=== PATIENT | female | born 1985 | race African-American/Black ===

== ENCOUNTER 2017-11-25 14:02 | Emergency (ER) | payer OTHER, SELFPAY ==
[2017-11-25] MEDS ORDERED: Acetaminophen/Codeine 30-300mg Tablet ONE (14:37)
[2017-11-25] MEDS ORDERED: Ibuprofen 200 MG TAB ONE (14:38)
--- NOTE | 2017-11-25 14:53 | RAD ---
3 VIEWS LEFT RING FINGER: Date: 11/25/17 INDICATION: Laceration of the left ring finger. FINDINGS: No acute fracture or subluxation is evident. No radiopaque foreign body is demonstrated. Joint spaces are preserved. Bone mineralization is normal. IMPRESSION: No acute osseous abnormality. POS: [facility]
[2017-11-25] MEDS ORDERED: Adacel (T-DAP) 0.5 ML VIAL ONE (15:01)
== END 2017-11-25 15:14 | disposition home or self-care (01) ==
LOC: NAV ERS 14:02
DX: S61.215A Laceration without foreign body of left ring finger without damage to nail, initial encounter (principal); I10 Essential (primary) hypertension; Z87.891 Personal history of nicotine dependence; Z79.899 Other long term (current) drug therapy; W26.8XXA Contact with other sharp object(s), not elsewhere classified, initial encounter
CPT/HCPCS: 90471; 90715

== ENCOUNTER 2018-12-27 08:58 | Outpatient (CLI) | payer OTHER ==
--- NOTE | 2018-12-27 10:56 | ULT ---
ABDOMINAL ULTRASOUND COMPLETE: History: Peroneal pain, more right sided, for several months. FINDINGS: Liver echogenicity appears to be within normal limits. No gallstones, wall thickening, edema, or shan cholecystic fluid. Common bile duct 0.4 cm. No focal liver masses. No intrahepatic ductal dilatation. Visualized pancreas, IVC, aorta and spleen are unremarkable. No renal hydronephrosis. Both kidneys a re borderline small. IMPRESSION: No evidence of gallstones. Borderline small kidneys bilaterally. No abnormal fluid collection. No rachna jil dilatation. POS: [facility]
--- NOTE | 2018-12-27 11:07 | ULT ---
COMPLETE PELVIC ULTRASOUND: HISTORY: Pain. COMPARISON: None. FINDINGS: Ultrasound of the pelvis was performed with a transabdominal approach. The uterus measures 11 x 4 x 5 cm. The endometrial thickness is normal, measuring less than 1 cm. The right ovary measures 4.3 x 2.1 x 3.4 cm with a 2.4 cm cyst. The left ovary measures 3.2 x 1.6 x 1.4 cm. No significant free fluid. There is adequate vascular flow to both ovaries. IMPRESSION: Findings suggestive of a complex right ovarian cyst, which may reflect a hemorrhagic cyst. Followup in six weeks is recommended. POS: [facility]
== END 2018-12-27 08:59 | disposition home or self-care (01) ==
LOC: NAV ULT 08:58
PROVIDERS: ATTEND Nurse Practitioner Family
DX: R10.2 Pelvic and perineal pain (principal)
CPT/HCPCS: 76700; 76856

== ENCOUNTER 2019-06-19 15:42 | Emergency (ER) | payer OTHER | END 2019-06-19 16:50 | disposition home or self-care (01) | LOC: NAV ERS 15:42 | DX: F41.9 Anxiety disorder, unspecified (principal); Z77.22 Contact with and (suspected) exposure to environmental tobacco smoke (acute) (chronic); Z79.899 Other long term (current) drug therapy ==

== ENCOUNTER 2019-08-16 12:10 | Emergency (ER) | payer OTHER ==
[2019-08-16 12:46] LABS: #Eosinphils 0.1 thou/uL (0.0-0.7); #Lymphocytes 1.6 thou/uL (1.20-3.40); #Monocytes 0.4 thou/uL (0.11-0.59); #Neutrophils 2.8 thou/uL (1.40-6.50); %Basophils 0.8 % (0.0-1.0); %Eosinophils 2.5 % (0.0-10.0); %Lymphocytes 32.6 % (21.0-51.0); %Monocytes 7.4 % (0.0-10.0); %Neutrophils 56.8 % (42.0-75.0); Hemoglobin 11.8 g/dL (12.0-16.0); Mean Corpuscular HGB CONC 32.3 g/dL (32.0-36.0); Mean Corpuscular Hemoglobin 30.5 pg (27.0-31.0); Mean Corpuscular Volume 94.5 fL (78.0-98.0); Platelet Count 266 thou/uL (130-400); RBC Distribution Width 13.1 % (11.5-14.5); Red Blood Cell (RBC) Count 3.88 mill/uL (4.20-5.40); White Blood Cell (WBC) Count 4.9 thou/uL (4.8-10.8)
[2019-08-16 12:53] LABS: BHCG - Serum Negative (NEGATIVE); Pregs Control Bar Appear? YES (CONTROL BAR)
[2019-08-16 13:00] LABS: ALT (SGPT) 16 U/L (8-55); AST (SGOT) 15 U/L (5-34); Albumin 3.7 g/dL (3.5-5.0); Alkaline Phosphatase 57 U/L (40-110); Anion Gap 12 mmol/L (10-20); BUN (Urea Nitrogen) 12 mg/dL (7.0-18.7); Bilirubin, Total 0.5 mg/dL (0.2-1.2); Calc. Creatinine Clearance 0 mL/min (70-130); Calcium 8.5 mg/dL (7.8-10.44); Carbon Dioxide 26 mmol/L (22-29); Chloride 106 mmol/L (98-107); Estimated GFR-MDRD 87; Globulin 2.6 g/dL (2.4-3.5); Glucose 91 mg/dL (70-105); Potassium 3.6 mmol/L (3.5-5.1); Protein, Total 6.3 g/dL (6.0-8.3); Sodium 140 mmol/L (136-145)
[2019-08-16 13:33] LABS: Bilirubin Negative (Negative); Blood, Urine Large (Negative); Clarity Cloudy (Clear); Glucose, Urine (Dipstick) Negative (Negative); Leukocyte Negative (Negative); Nitrite Negative (Negative); Protein, Urine (Dipstick) 30 mg/dL (Neg-Trace)
--- NOTE | 2019-08-16 13:35 | ULT ---
TRANSABDOMINAL ULTRASOUND OF THE PELVIS: HISTORY: Bleeding longer than normal. Left lower quadrant pain. COMPARISON: 12/27/2018 TECHNIQUE: Transabdominal imaging of the pelvis was formed. The patient refused endovaginal imaging. The ovaries are interrogated with morales-scale, color-flow and Doppler imaging with spectral wave-form analysis. FINDINGS: The uterus is identified, measuring 9.8 x 4.2 x 5.2 cm. In the posterior uterine myometrium, there is a hypoechoic focus measuring 0.9 x 1.1 x 1.1 cm. Uterine leiomyoma is favored. Limited evaluation of the endometrium. The left ovary has a normal echotexture, measuring 1.9 x 4.3 x 4.2 cm. Multiple follicles in the right ovary are noted. The right ovary measures 3.6 x 2.4 x 3.8 cm. No free fluid. Ovarian Doppler: Vascular flow to the right and left ovary. IMPRESSION: Small uterine fibroid. Limited evaluation of the endometrium. Consider pelvic MRI. Transcribed Date/Time: 08/16/2019 1:41 PM
[2019-08-16 13:45] LABS: RBC/HPF 21-50 HPF (0-3)
[2019-08-16 13:46] LABS: Bacteria/HPF None Seen HPF (None Seen)
== END 2019-08-16 13:50 | disposition home or self-care (01) ==
LOC: NAV ERS 12:10
DX: N85.8 Other specified noninflammatory disorders of uterus (principal); N83.8 Other noninflammatory disorders of ovary, fallopian tube and broad ligament; I10 Essential (primary) hypertension; F41.9 Anxiety disorder, unspecified; Z87.891 Personal history of nicotine dependence; Z79.899 Other long term (current) drug therapy
CPT/HCPCS: 76856; 80053; 81003; 81015; 84703; 85025

== ENCOUNTER 2019-08-31 01:29 | Emergency (ER) | payer OTHER ==
[2019-08-31] MEDS ORDERED: Ketorolac Tromethamine 60 MG/2 ML VIAL ONE (01:58)
== END 2019-08-31 02:15 | disposition home or self-care (01) ==
LOC: NAV ERS 01:29
DX: S46.912A Strain of unspecified muscle, fascia and tendon at shoulder and upper arm level, left arm, initial encounter (principal); I10 Essential (primary) hypertension; F41.9 Anxiety disorder, unspecified; Z87.891 Personal history of nicotine dependence; Z79.899 Other long term (current) drug therapy; X50.9XXA Other and unspecified overexertion or strenuous movements or postures, initial encounter
CPT/HCPCS: 96372; 99283; J1885

== ENCOUNTER 2019-09-01 06:42 | Emergency (ER) | payer OTHER ==
--- NOTE | 2019-09-01 07:39 | RAD ---
LEFT SHOULDER 3 VIEWS: Date: 09/01/19 HISTORY: Left shoulder pain. FINDINGS/IMPRESSION: No fracture, dislocation, or other acute osseous process. POS: [facility]
== END 2019-09-01 08:16 | disposition home or self-care (01) ==
LOC: NAV ERS 06:42
DX: S46.912A Strain of unspecified muscle, fascia and tendon at shoulder and upper arm level, left arm, initial encounter (principal); I10 Essential (primary) hypertension; F41.9 Anxiety disorder, unspecified; F17.210 Nicotine dependence, cigarettes, uncomplicated; Z79.899 Other long term (current) drug therapy; X50.9XXA Other and unspecified overexertion or strenuous movements or postures, initial encounter

== ENCOUNTER 2019-11-16 08:01 | Emergency (ER) | payer OTHER | END 2019-11-16 08:34 | disposition home or self-care (01) | LOC: NAV ERS 08:01 | DX: J06.9 Acute upper respiratory infection, unspecified (principal); G43.909 Migraine, unspecified, not intractable, without status migrainosus; I10 Essential (primary) hypertension; F41.9 Anxiety disorder, unspecified; F32.9 Major depressive disorder, single episode, unspecified; F17.210 Nicotine dependence, cigarettes, uncomplicated; Z79.899 Other long term (current) drug therapy | CPT/HCPCS: 99281 ==

== ENCOUNTER 2019-12-17 13:20 | Emergency (ER) | payer OTHER ==
[2019-12-17] MEDS ORDERED: Lidocaine 1% w/Epinephrine 1:100K 30 ML VIAL ONE (13:32)
[2019-12-17] MEDS ORDERED: Adacel (T-DAP) 0.5 ML SYRINGE ONE (14:03)
[2019-12-17] MEDS ORDERED: Bacitracin 1 PK ONE (14:14)
== END 2019-12-17 14:25 | disposition home or self-care (01) ==
LOC: NAV ERS 13:20
DX: S61.512A Laceration without foreign body of left wrist, initial encounter (principal); D50.9 Iron deficiency anemia, unspecified; G43.909 Migraine, unspecified, not intractable, without status migrainosus; I10 Essential (primary) hypertension; F41.9 Anxiety disorder, unspecified; F32.9 Major depressive disorder, single episode, unspecified; F17.210 Nicotine dependence, cigarettes, uncomplicated; Z23 Encounter for immunization; Z79.899 Other long term (current) drug therapy; W26.8XXA Contact with other sharp object(s), not elsewhere classified, initial encounter
CPT/HCPCS: 12002; 90471; 90715; J2001

== ENCOUNTER 2019-12-19 11:08 | Emergency (ER) | payer OTHER | END 2019-12-19 11:40 | disposition home or self-care (01) | LOC: NAV ERS 11:08 | DX: S61.215D Laceration without foreign body of left ring finger without damage to nail, subsequent encounter (principal); D50.9 Iron deficiency anemia, unspecified; G43.909 Migraine, unspecified, not intractable, without status migrainosus; I10 Essential (primary) hypertension; F41.9 Anxiety disorder, unspecified; F17.210 Nicotine dependence, cigarettes, uncomplicated; F32.9 Major depressive disorder, single episode, unspecified; Z79.899 Other long term (current) drug therapy; W45.8XXD Other foreign body or object entering through skin, subsequent encounter | CPT/HCPCS: 99282 ==

== ENCOUNTER 2021-04-05 12:58 | Emergency (ER) | payer OTHER ==
[2021-04-05] MEDS ORDERED: Sodium Chloride 0.9% 1,000 ML ONE (13:19)
[2021-04-05 13:31] LABS: #Eosinphils 0.1 thou/uL (0.0-0.7); #Lymphocytes 1.7 thou/uL (1.20-3.40); #Monocytes 0.5 thou/uL (0.11-0.59); #Neutrophils 3.5 thou/uL (1.40-6.50); %Basophils 0.8 % (0.0-1.0); %Eosinophils 2.4 % (0.0-10.0); %Lymphocytes 28.8 % (21.0-51.0); %Monocytes 7.9 % (0.0-10.0); %Neutrophils 60.1 % (42.0-75.0); Hemoglobin 12.6 g/dL (12.0-16.0); Mean Corpuscular HGB CONC 29.7 g/dL (32.0-36.0); Mean Corpuscular Hemoglobin 28.3 pg (27.0-31.0); Mean Corpuscular Volume 95.5 fL (78.0-98.0); Mean Platelet Volume 8.3 fL (7.4-10.4); Platelet Count 303 thou/uL (130-400); RBC Distribution Width 12.5 % (11.5-14.5); Red Blood Cell (RBC) Count 4.46 mill/uL (4.20-5.40); White Blood Cell (WBC) Count 5.8 thou/uL (4.8-10.8)
[2021-04-05 13:39] LABS: ALT (SGPT) 15 U/L (8-55); AST (SGOT) 15 U/L (5-34); Alkaline Phosphatase 82 U/L (40-110); Anion Gap 15 mmol/L (10-20); BUN (Urea Nitrogen) 12 mg/dL (7.0-18.7); Bilirubin, Total 0.4 mg/dL (0.2-1.2); Calc. Creatinine Clearance 0 mL/min (70-130); Calcium 8.4 mg/dL (7.8-10.44); Carbon Dioxide 24 mmol/L (22-29); Chloride 104 mmol/L (98-107); Globulin 3.1 g/dL (2.4-3.5); Glucose 93 mg/dL (70-105); Potassium 3.3 mmol/L (3.5-5.1); Protein, Total 7.1 g/dL (6.0-8.3); Sodium 140 mmol/L (136-145)
[2021-04-05 14:12] LABS: Bilirubin Negative (Negative); Blood, Urine Trace (Negative); Clarity Clear (Clear); Glucose, Urine (Dipstick) Negative (Negative); Ketone, Urine Negative (Negative); Leukocyte Small (Negative); Nitrite Negative (Negative); Protein, Urine (Dipstick) Negative (Neg-Trace); Urobilinogen 0.2 mg/dL (Less than 2); pH, Urine 7.5 (5.0-9.0)
[2021-04-05] MEDS ORDERED: Potassium Chloride 20 MEQ TAB ONE (14:15)
[2021-04-05 14:22] LABS: Pregnancy Test - Urine (BHCG) Negative (Negative); Pregu Control Background? CLEAR/WHITE (CLR/WHITE); Pregu Control Bar Appear? YES (CONTROL BAR)
[2021-04-05 14:32] LABS: Bacteria/HPF None Seen HPF (None Seen); RBC/HPF None Seen HPF (0-3); Squamous Epithelial 0-3 HPF (0-3); WBC/HPF None Seen HPF (0-3)
== END 2021-04-05 14:54 | disposition home or self-care (01) ==
LOC: NAV ERS 12:58
DX: T67.5XXA Heat exhaustion, unspecified, initial encounter (principal); E86.0 Dehydration; D50.9 Iron deficiency anemia, unspecified; I10 Essential (primary) hypertension; F17.210 Nicotine dependence, cigarettes, uncomplicated
CPT/HCPCS: 36415; 71045; 80053; 81003; 81015; 81025; 84484; 85025; 93005; J7050

== ENCOUNTER 2021-05-06 00:45 | Emergency (ER) | payer OTHER ==
[2021-05-06] MEDS ORDERED: Amlodipine 5 MG TAB ONE (01:02)
[2021-05-06] MEDS ORDERED: Hydrochlorothiazide 25 MG TAB ONE (01:02)
== END 2021-05-06 01:10 ==
LOC: NAV ERS 00:45
DX: I10 Essential (primary) hypertension (principal); G43.909 Migraine, unspecified, not intractable, without status migrainosus; D50.9 Iron deficiency anemia, unspecified; F17.210 Nicotine dependence, cigarettes, uncomplicated
CPT/HCPCS: 99283

== ENCOUNTER 2021-08-28 23:10 | Emergency (ER) | payer OTHER ==
[2021-08-28] MEDS ORDERED: Lorazepam 2 MG/ML VIAL ONE (23:29)
[2021-08-28] MEDS ORDERED: Sodium Chloride 0.9% 1,000 ML ONE (23:29)
[2021-08-28 23:36] LABS: #Basophils 0.1 thou/uL (0.0-0.2); #Eosinphils 0.1 thou/uL (0.0-0.7); #Monocytes 0.7 thou/uL (0.11-0.59); #Neutrophils 6.3 thou/uL (1.40-6.50); %Basophils 1.3 % (0.0-1.0); %Eosinophils 1.3 % (0.0-10.0); %Lymphocytes 21.2 % (21.0-51.0); %Monocytes 7.6 % (0.0-10.0); %Neutrophils 68.5 % (42.0-75.0); Hemoglobin 11.2 g/dL (12.0-16.0); Mean Corpuscular HGB CONC 31.9 g/dL (32.0-36.0); Mean Corpuscular Hemoglobin 29.5 pg (27.0-31.0); Mean Corpuscular Volume 92.6 fL (78.0-98.0); Mean Platelet Volume 8.8 fL (7.4-10.4); Platelet Count 259 thou/uL (130-400); RBC Distribution Width 12.1 % (11.5-14.5); Red Blood Cell (RBC) Count 3.78 mill/uL (4.20-5.40); White Blood Cell (WBC) Count 9.2 thou/uL (4.8-10.8)
[2021-08-28 23:37] LABS: BHCG - Serum Negative (NEGATIVE); Pregs Control Bar Appear? YES (CONTROL BAR)
[2021-08-28 23:48] LABS: Acetaminophen Less than 6.0 mcg/mL (10.0-30.0); Alcohol Less than 10 mg/dL (Less than 10); Salicylate Less than 8.0 mg/dL (15.0-30.0)
[2021-08-28 23:50] LABS: ALT (SGPT) 76 U/L (8-55); AST (SGOT) 104 U/L (5-34); Albumin 3.7 g/dL (3.5-5.0); Alkaline Phosphatase 58 U/L (40-110); Anion Gap 13 mmol/L (10-20); BUN (Urea Nitrogen) 17 mg/dL (7.0-18.7); Calc. Creatinine Clearance 0 mL/min (70-130); Calcium 8.7 mg/dL (7.8-10.44); Carbon Dioxide 26 mmol/L (22-29); Chloride 106 mmol/L (98-107); Globulin 2.9 g/dL (2.4-3.5); Glucose 95 mg/dL (70-105); Protein, Total 6.6 g/dL (6.0-8.3); Sodium 142 mmol/L (136-145)
[2021-08-29 00:48] LABS: Bilirubin Small (Negative); Blood, Urine Small (Negative); Clarity Clear (Clear); Glucose, Urine (Dipstick) Negative (Negative); Ketone, Urine 40 mg/dL (Negative); Leukocyte Small (Negative); Nitrite Negative (Negative); Protein, Urine (Dipstick) 30 mg/dL (Neg-Trace); Specific Gravity, Urine 1.025 (1.005-1.030); Urobilinogen > or = 8.0 mg/dL (Less than 2)
[2021-08-29 00:53] LABS: Bacteria/HPF None Seen HPF (None Seen)
[2021-08-29 00:58] LABS: Cocaine Metabolite Screen Detected (NotDetected); Methamphetamine Detected (NotDetected); THC/Cannabinoid Screen Detected (NotDetected)
[2021-08-29 00:59] LABS: Amphetamine Detected (NotDetected); Barbiturates Screen Not Detected (NotDetected); Benzodiazepine Screen Not Detected (NotDetected); Medtox Control Line Valid? VALID (VALID); Methadone Not Detected (NotDetected); Opiate Screen Not Detected (NotDetected); Oxycodone Screen Not Detected (NotDetected); Phencyclidine (PCP) Not Detected (NotDetected); Tricyclic Screen Not Detected (NotDetected)
[2021-08-29] MEDS ORDERED: Lorazepam 2 MG/ML VIAL ONE (01:00)
[2021-08-29 01:04] LABS: CKMB 29.9 ng/mL (0-6.6)
[2021-08-29] MEDS ORDERED: Aspirin 300 MG Suppository ONE (01:32)
[2021-08-29] MEDS ORDERED: Sodium Chloride 0.9% 1,000 ML ONE (01:59)
[2021-08-29 02:32] LABS: SARS-CoV-2 NAA Rapid Test Not Detected (NotDetected)
[2021-08-29 02:44] LABS: Troponin I 0.035 ng/mL (< 0.028)
== END 2021-08-29 02:23 | disposition short-term general hospital (02) ==
LOC: NAV ERS 23:10
DX: R41.82 Altered mental status, unspecified (principal); E87.6 Hypokalemia; F12.10 Cannabis abuse, uncomplicated; F14.10 Cocaine abuse, uncomplicated; F15.10 Other stimulant abuse, uncomplicated; M62.82 Rhabdomyolysis; Z20.822 Contact with and (suspected) exposure to COVID-19; G43.909 Migraine, unspecified, not intractable, without status migrainosus; D50.9 Iron deficiency anemia, unspecified; I10 Essential (primary) hypertension; F17.210 Nicotine dependence, cigarettes, uncomplicated
CPT/HCPCS: 51702; 70450; 80053; 80306; 80307; 81003; 81015; 82550; 82553; 84443; 84484; 84703; 85025; 93005; 96374; 96376; J2060; J7050; U0002

== ENCOUNTER 2023-05-03 00:26 | Emergency (ER) | payer OTHER ==
[2023-05-03] MEDS ORDERED: hydrALAZINE 20 MG/ML VIAL ONE ×2 (00:45→01:14)
== END 2023-05-03 01:46 ==
LOC: NAV ERS 00:26
DX: I10 Essential (primary) hypertension (principal); D50.9 Iron deficiency anemia, unspecified; G47.00 Insomnia, unspecified; F17.210 Nicotine dependence, cigarettes, uncomplicated
CPT/HCPCS: 96372; 99283; J0360

== ENCOUNTER 2024-06-27 17:19 | Emergency (ER) | payer OTHER, SELFPAY | END 2024-06-27 19:00 | disposition home or self-care (01) | LOC: NAV ERS 17:19 | DX: M22.01 Recurrent dislocation of patella, right knee (principal); I10 Essential (primary) hypertension; F17.210 Nicotine dependence, cigarettes, uncomplicated ==

== ENCOUNTER 2024-08-14 14:03 | Emergency (ER) | payer BC, SELFPAY ==
[2024-08-14] MEDS ORDERED: Sodium Chloride 0.9% 1,000 ML ONE (14:42)
[2024-08-14 14:54] LABS: Amphetamine Not Detected (NotDetected); Barbiturates Screen Not Detected (NotDetected); Benzodiazepine Screen Not Detected (NotDetected); Cocaine Metabolite Screen Not Detected (NotDetected); Methadone Not Detected (NotDetected); Methamphetamine Not Detected (NotDetected); Opiate Screen Not Detected (NotDetected); Oxycodone Screen Not Detected (NotDetected); Phencyclidine (PCP) Not Detected (NotDetected); THC/Cannabinoid Screen Not Detected (NotDetected); Tricyclic Screen Not Detected (NotDetected)
[2024-08-14 15:17] LABS: #Basophils 0.1 thou/uL (0.0-0.2); #Eosinophils 0.1 thou/uL (0.0-0.7); #Lymphocytes 2.4 thou/uL (1.20-3.40); #Monocytes 0.7 thou/uL (0.11-0.59); #Neutrophils 4.8 thou/uL (1.40-6.50); %Basophils 0.7 % (0.0-1.0); %Eosinophils 1.4 % (0.0-10.0); %Lymphocytes 29.6 % (21.0-51.0); %Monocytes 8.6 % (0.0-10.0); %Neutrophils 59.8 % (42.0-75.0); Hematocrit 36.7 % (36.0-47.0); Hemoglobin 11.3 g/dL (12.0-16.0); Mean Corpuscular HGB CONC 30.7 g/dL (32.0-36.0); Mean Corpuscular Hemoglobin 26.2 pg (27.0-31.0); Mean Corpuscular Volume 85.3 fl (78.0-98.0); Mean Platelet Volume 9.5 fL (7.4-10.4); Platelet Count 282 10x3/uL (130-400)
[2024-08-14 15:18] LABS: Bacteria/HPF Rare-Few HPF (None Seen); Bilirubin Negative (Negative); Blood, Urine Negative (Negative); CAUTI Indications for Culture Alt mental st,lethar; Clarity Clear (Clear); Glucose, Urine (Dipstick) Negative (Negative); Ketone, Urine Negative (Negative); Leukocyte Trace (Negative); Nitrite Negative (Negative); Protein, Urine (Dipstick) Negative (Neg-Trace); RBC/HPF 0-3 HPF (0-3); Specific Gravity, Urine 1.015 (1.005-1.030); Squamous Epithelial 0-3 HPF (0-3); Trichomonas/HPF 1+ HPF (None Seen); Urobilinogen 0.2 mg/dL (Less than 2); WBC/HPF 0-3 HPF (0-3)
[2024-08-14 15:19] LABS: Urine Culture Reflex No No
[2024-08-14 15:29] LABS: ALT (SGPT) 14 U/L (8-55); AST (SGOT) 16 U/L (5-34); Albumin 3.6 g/dL (3.5-5.0); Alkaline Phosphatase 69 U/L (40-110); Anion Gap 15 mmol/L (10-20); BUN (Urea Nitrogen) 15 mg/dL (7.0-18.7); Bilirubin, Total 0.4 mg/dL (0.2-1.2); Calc. Creatinine Clearance 0 mL/min (70-130); Calcium 9.3 mg/dL (7.8-10.44); Carbon Dioxide 23 mmol/L (22-29); Chloride 102 mmol/L (98-107); Estimated GFR 75; Globulin 3.7 g/dL (2.4-3.5); Glucose 75 mg/dL (70-105); Potassium 3.8 mmol/L (3.5-5.1); Protein, Total 7.3 g/dL (6.0-8.3); Sodium 136 mmol/L (136-145)
[2024-08-14 15:30] LABS: Troponin I 0.015 ng/mL (< 0.028)
[2024-08-14 15:31] LABS: BHCG - Serum Negative (NEGATIVE); Pregs Control Bar Appear? YES (CONTROL BAR)
[2024-08-14] MEDS ORDERED: cloNIDine 0.1 MG TAB ONE (16:11)
[2024-08-14] MEDS ORDERED: Ketorolac Tromethamine 60 MG/2 ML VIAL ONE (16:40)
== END 2024-08-14 18:50 ==
LOC: NAV ERS 14:03
DX: R56.9 Unspecified convulsions (principal); M25.561 Pain in right knee; I10 Essential (primary) hypertension; A59.00 Urogenital trichomoniasis, unspecified; F17.290 Nicotine dependence, other tobacco product, uncomplicated
CPT/HCPCS: 36415; 70450; 80053; 80306; 81001; 83605; 84484; 84703; 85025; 85379; 93005; 96372; J1885; J7030